=== PATIENT | male | born 1940 | race Caucasian/White ===

== ENCOUNTER → 2017-04-28 | Outpatient (CLI) | payer MEDICARE ==
[~2017-04-28] MED LIST: ALPRAZOLAM0.25 MG PO; AMLO5TAB PO; APAP/HYDROCODON1 TA9 PO; APRESOLINE 50MG50 MG PO; ASPIRIN 81MG TA81 MG PO; AUGMENTIN 875-1 EACH PO; AUGMENTIN1 TA2 PO; CARVEDILOL 1212.5 MG PO; CEFDINIR 300MG300 MG PO; CLINDAMYCIN HC300 MG PO; CLONIDINE HYDR0.3 MG PO; CLONIDINE0.3 MG PO; CLOPIDOGREL75 MG PO; COMBIVENT1 AR1 IH; DIAZEPAM10 MG PO; DUONEB 3 MG/3 ML3 ML IH; HYDROXYZINE 25M25 MG PO; HYDROXYZINE10 MG PO; INVANZ 1 GM1 GM IM; ISOSORBIDE MONO60 M1 PO; LEVAQUIN 750 M750 MG PO; LIPITOR20 MG PO; LOSARTAN POTASS25 MG PO; LOVAZA1 GM PO; MAG-OX 400MG T400 MG PO; MAXZIDE 25 MG-31 TAB PO; MECLIZINE25 MG PO; METFORMIN 500M500 MG PO; METFORMIN500 MG PO; METOPROLOL SUCC50 M1 PO; METOPROLOL50 MG PO; NEURONTIN800 MG PO; NORCO 325 MG-51 TAB PO; NYSTATIN 1100000 UNI PO; PREDNISONE 10MG10 MG PO; PREDNISONE 20MG20 MG PO; PROAIR RES117 MCG/Ac IH; RANITIDINE HCL150 MG PO; TRADJENTA5 MG PO; TRICOR 145 MG145 MG PO
[2017-04-28 14:28] LABS: HEMOGLOBIN 9.6 g/dL (14.1-18.0); LYMPH # 1.4 K/mm3 (0.7-4.5); LYMPH % 22.9 % (10-50)
[2017-04-28 16:00] LABS: BUN 24 mg/dL (7-18)
[2017-04-28 16:16] LABS: GFR (ESTIMATED) 45 ML/MIN (>60)
== END ==
LOC: CARL-LAB 06:56
PROVIDERS: Nurse Practitioner Family
DX: E11.9 Type 2 diabetes mellitus without complications (principal); L29.9 Pruritus, unspecified; I10 Essential (primary) hypertension; Z00.00 Encounter for general adult medical examination without abnormal findings